=== PATIENT | female | born 1940 | race Caucasian/White ===

== ENCOUNTER 2016-10-01 01:46 | Observation (INO) ==
[2016-10-01] MEDS ORDERED: Ipratropium/Albuterol Neb 3 ML IH STA (01:51)
[2016-10-01] MEDS ORDERED: Ondansetron 4 MG/2 ML VIAL IVP STA (01:59)
--- NOTE | 2016-10-01 02:02 | Emergency Department Note ---
Disposition Clinical Impression: Congestive heart failure Qualifiers: Congestive heart failure type: unspecified congestive heart failure type Congestive heart failure chronicity: unspecified congestive heart failure chronicity Qualified Code(s): I50.9 - Heart failure, unspecified Disposition: Admitted As Inpatient Condition: Serious SOB HPI - General Chief Complaint: ED Shortness of Breath/Dyspnea Stated Complaint: sob Time Seen by Provider: 10/01/16 01:49 Nursing Notes Reviewed: Yes Vital Signs Reviewed: Yes - History of Present Illness Patient is a 75-year-old female has felt short of breath for 3 days. She denies a history of lung problems. She denies congestive heart failure he denies COPD. Denies tobacco. Pt Subjective Complaint: shortness of breath Onset (ago): day(s) (3days) - Related Data Home Medications Medication Instructions Recorded Confirmed Aspirin [Lo-Dose Aspirin EC] 81 mg PO DAILY 05/07/16 10/01/16 Cephalexin [Keflex] 500 mg PO BID 05/07/16 10/01/16 Citalopram [CeleXA] 20 mg PO DAILY 05/07/16 10/01/16 Famotidine [Pepcid] 40 mg PO DAILY 05/07/16 10/01/16 Lisinopril-HCTZ 20-12.5 [Prinzide 1 each PO DAILY 05/07/16 10/01/16 20-12.5] Previous Rx's Medication Instructions Recorded Amlodipine [Norvasc] 5 mg PO DAILY #15 tablet 05/07/16 Allergies Allergy/AdvReac Type Severity Reaction Status Date / Time No Known Allergies Allergy Verified 04/30/16 14:32 All systems ED: reviewed and negative except as stated. Past Medical History - Past Medical History Medical history: Reports: GERD, hyperlipidemia, hypertension Psychiatric history: Reports: anxiety - Social History Smoking Status: Never smoker Smokeless Tobacco Status: No Alcohol use: Reports: none Drug use: Reports: none Physical Exam - General Limitations: no limitations General appearance: other (dyspneic) - Head Head exam: atraumatic - Eye Eye exam: Present: normal appearance - ENT ENT exam: normal exam - Neck Neck exam: Present: normal inspection - Chest Chest inspection: Present: normal inspection - Respiratory Respiratory exam: Present: accessory muscle use, other (crackles) - Cardiovascular Cardiovascular exam: Present: regular rate - Abdominal Exam Abdominal exam: Present: soft, Non-Tender - Extremities Exam Extremities exam: Present: normal inspection - Back Exam Back exam: Present: normal inspection - Neurological Exam Neurological exam: Present: alert, oriented X3, CN II-XII intact - Psychiatric Psychiatric exam: Present: normal affect, normal mood - Skin Skin exam: Present: warm, dry Course Course Narrative: Patient's son called I asked the patient was okay to discuss her care with him she said yes. She and the son wanted her transferred to [facility] if necessary. - Reevaluation(s) Reevaluation #1: Patient sounds that are consistent with congestive heart failure and chest x- ray looks consistent with congestive heart failure although her lactic acid is elevated and I am not sure if she would tolerate 30 mg/kg of normal saline. She was given 40 mg of Lasix due to her lungs sounding wet. Reevaluation #2: TROPONIN analyzer being down labs have been sent to [facility]. Which is cold and asked how much longer medical laboratory technical officer and [facility] was not aware of erosive component or a BNP waiting to be run. They believe the box printer must was sent for blood work down. Vital Signs Pulse Rate 106 10/01/16 01:48 Respiratory Rate 32 10/01/16 01:48 Blood Pressure 170/100 10/01/16 01:48 O2 Sat by Pulse Oximetry 80 L 10/01/16 01:48 Temperature 97.2 F L 10/01/16 02:29 Pulse Rate 65 10/01/16 04:56 Respiratory Rate 23 10/01/16 05:04 Blood Pressure 104/57 10/01/16 05:04 O2 Sat by Pulse Oximetry 99 10/01/16 04:56 Oxygen Delivery Oxygen Delivery Bipap Shortness of Breath/Dyspnea - MDM Narrative Medical decision making narrative: Differential: Pneumonia versus influenza versus congestive heart failure - Lab Data Lab results reviewed: Yes I reviewed the patient's lab results. Result diagrams: 10/01/16 02:06 10/01/16 02:06 Lab Results 10/01/16 10/01/16 10/01/16 Range/Units 01:52 02:06 02:06 WBC 8.4 (4.3-11.1) K/mcL RBC 4.19 (3.82-4.97) M/mcL Hgb 12.3 (11.5-15.4) g/dL Hct 37.8 (35.3-44.9) % MCV 90.2 (83.0-100.0) fL MCH 29.4 (28.0-33.3) pg MCHC 32.5 (31.6-35.5) g/dL RDW 12.7 (11.5-14.5) % Plt Count 179 (140-400) K/mcL MPV 11.9 (9.4-12.4) fL Immature Gran % 0.4 (0-4) % Seg Neutrophils % 32.2 % Lymphocytes % 57.2 % Monocytes % 6.4 % Eosinophils % 3.3 % Basophils % 0.5 % Neutrophils # 2.7 (1.6-8.9) K/mcL Lymphocytes # 4.8 H (0.6-4.6) K/mcL Monocytes # 0.5 (0.0-1.3) K/mcL Eosinophils # 0.3 (0.0-0.6) K/mcL Basophils # 0.0 (0.0-0.2) K/mcL Platelet Estimate Normal (Normal) Clumped Platelets Few A (Not Present) PT 12.2 H (9.4-12.1) Seconds INR 1.1 ABG pH 7.18 L* (7.32-7.45) pH Units ABG pCO2 58 H (35-45) mmHg ABG pO2 67 L (85-104) mmHg ABG HCO3 21.9 (21-27) mEQ/L ABG Total CO2 23.6 (20-26) mEq/L ABG O2 Saturation 87 L (95-98) % ABG Base Excess -6.5 L (-2.0 to 3.0) mEq/L VBG Lactic Acid (0.5-2.2) mmol/L Respiration Rate Liter Flow 8 L/MIN Blood Gas Modality Simple Mask Inspired O2 % Inspiratory BiPAP cm H2O Expiratory BiPAP cm H2O Sodium (136-145) mEq/L Potassium (3.5-4.5) mEq/L Chloride (98-109) mEq/L Carbon Dioxide (19-29) mEq/L BUN (7-20) mg/dL Creatinine (0.57-1.11) mg/dL Est GFR ( Amer) (> 60) Est GFR (Non-Af Amer) (> 60) BUN/Creatinine Ratio (6-26) Glucose (70-99) mg/dL Calculated Osmolality (280-300) Calcium (8.6-10.8) mg/dL Total Bilirubin (0.2-1.2) mg/dL AST (5-34) Units/L ALT (0-55) Units/L Alkaline Phosphatase (38-126) Units/L Troponin I (0-0.03) ng/mL B-Natriuretic Peptide (0-100) pg/mL Serum Total Protein (6.0-8.3) g/dL Albumin (3.5-5.0) g/dL Globulin (2.4-3.5) g/dL Albumin/Globulin Ratio (1.1-2.2) Urine Color (Yellow) Urine Clarity (Clear) Urine pH (5.0-8.0) pH Units Ur Specific Gooding (1.010-1.025) Urine Protein (Neg-Trace) mg/dL Urine Glucose (UA) (Normal) mg/dL Urine Ketones (Negative) mg/dL Urine Blood (Negative) Urine Nitrite (Negative) Urine Bilirubin (Negative) Urine Urobilinogen (Normal) mg/dL Ur Leukocyte Esterase (Negative) Urine Microscopic RBC (0-3) per hpf Urine Microscopic WBC (0-3) per hpf Ur Squamous Epith Cells (None-Few) per lpf Hyaline Casts (None-Few) per lpf Ur Culture Indicated? (NO) 10/01/16 10/01/16 10/01/16 Range/Units 02:06 02:06 02:06 WBC (4.3-11.1) K/mcL RBC (3.82-4.97) M/mcL Hgb (11.5-15.4) g/dL Hct (35.3-44.9) % MCV (83.0-100.0) fL MCH (28.0-33.3) pg MCHC (31.6-35.5) g/dL RDW (11.5-14.5) % Plt Count (140-400) K/mcL MPV (9.4-12.4) fL Immature Gran % (0-4) % Seg Neutrophils % % Lymphocytes % % Monocytes % % Eosinophils % % Basophils % % Neutrophils # (1.6-8.9) K/mcL Lymphocytes # (0.6-4.6) K/mcL Monocytes # (0.0-1.3) K/mcL Eosinophils # (0.0-0.6) K/mcL Basophils # (0.0-0.2) K/mcL Platelet Estimate (Normal) Clumped Platelets (Not Present) PT (9.4-12.1) Seconds INR ABG pH (7.32-7.45) pH Units ABG pCO2 (35-45) mmHg ABG pO2 (85-104) mmHg ABG HCO3 (21-27) mEQ/L ABG Total CO2 (20-26) mEq/L ABG O2 Saturation (95-98) % ABG Base Excess (-2.0 to 3.0) mEq/L VBG Lactic Acid (0.5-2.2) mmol/L Respiration Rate Liter Flow L/MIN Blood Gas Modality Inspired O2 % Inspiratory BiPAP cm H2O Expiratory BiPAP cm H2O Sodium 138 (136-145) mEq/L Potassium 3.1 L (3.5-4.5) mEq/L Chloride 104 (98-109) mEq/L Carbon Dioxide 17 L (19-29) mEq/L BUN 17 (7-20) mg/dL Creatinine 0.91 (0.57-1.11) mg/dL Est GFR ( Amer) > 60 (> 60) Est GFR (Non-Af Amer) > 60 (> 60) BUN/Creatinine Ratio 19 (6-26) Glucose 263 H (70-99) mg/dL Calculated Osmolality 297 (280-300) Calcium 8.6 (8.6-10.8) mg/dL Total Bilirubin 0.3 (0.2-1.2) mg/dL AST 29 (5-34) Units/L ALT 17 (0-55) Units/L Alkaline Phosphatase 62 (38-126) Units/L Troponin I 0.01 (0-0.03) ng/mL B-Natriuretic Peptide 424 H (0-100) pg/mL Serum Total Protein 6.7 (6.0-8.3) g/dL Albumin 3.6 (3.5-5.0) g/dL Globulin 3.1 (2.4-3.5) g/dL Albumin/Globulin Ratio 1.2 (1.1-2.2) Urine Color (Yellow) Urine Clarity (Clear) Urine pH (5.0-8.0) pH Units Ur Specific Gooding (1.010-1.025) Urine Protein (Neg-Trace) mg/dL Urine Glucose (UA) (Normal) mg/dL Urine Ketones (Negative) mg/dL Urine Blood (Negative) Urine Nitrite (Negative) Urine Bilirubin (Negative) Urine Urobilinogen (Normal) mg/dL Ur Leukocyte Esterase (Negative) Urine Microscopic RBC (0-3) per hpf Urine Microscopic WBC (0-3) per hpf Ur Squamous Epith Cells (None-Few) per lpf Hyaline Casts (None-Few) per lpf Ur Culture Indicated? (NO) 10/01/16 10/01/16 10/01/16 Range/Units 02:12 02:44 03:48 WBC (4.3-11.1) K/mcL RBC (3.82-4.97) M/mcL Hgb (11.5-15.4) g/dL Hct (35.3-44.9) % MCV (83.0-100.0) fL MCH (28.0-33.3) pg MCHC (31.6-35.5) g/dL RDW (11.5-14.5) % Plt Count (140-400) K/mcL MPV (9.4-12.4) fL Immature Gran % (0-4) % Seg Neutrophils % % Lymphocytes % % Monocytes % % Eosinophils % % Basophils % % Neutrophils # (1.6-8.9) K/mcL Lymphocytes # (0.6-4.6) K/mcL Monocytes # (0.0-1.3) K/mcL Eosinophils # (0.0-0.6) K/mcL Basophils # (0.0-0.2) K/mcL Platelet Estimate (Normal) Clumped Platelets (Not Present) PT (9.4-12.1) Seconds INR ABG pH 7.33 D (7.32-7.45) pH Units ABG pCO2 51 H (35-45) mmHg ABG pO2 71 L (85-104) mmHg ABG HCO3 27 (21-27) mEQ/L ABG Total CO2 28.6 H (20-26) mEq/L ABG O2 Saturation 93 L (95-98) % ABG Base Excess 1.1 (-2.0 to 3.0) mEq/L VBG Lactic Acid 5.7 H* (0.5-2.2) mmol/L Respiration Rate 12 Liter Flow L/MIN Blood Gas Modality BIPAP Inspired O2 50 % Inspiratory BiPAP 12 cm H2O Expiratory BiPAP 6 cm H2O Sodium (136-145) mEq/L Potassium (3.5-4.5) mEq/L Chloride (98-109) mEq/L Carbon Dioxide (19-29) mEq/L BUN (7-20) mg/dL Creatinine (0.57-1.11) mg/dL Est GFR ( Amer) (> 60) Est GFR (Non-Af Amer) (> 60) BUN/Creatinine Ratio (6-26) Glucose (70-99) mg/dL Calculated Osmolality (280-300) Calcium (8.6-10.8) mg/dL Total Bilirubin (0.2-1.2) mg/dL AST (5-34) Units/L ALT (0-55) Units/L Alkaline Phosphatase (38-126) Units/L Troponin I (0-0.03) ng/mL B-Natriuretic Peptide (0-100) pg/mL Serum Total Protein (6.0-8.3) g/dL Albumin (3.5-5.0) g/dL Globulin (2.4-3.5) g/dL Albumin/Globulin Ratio (1.1-2.2) Urine Color Yellow (Yellow) Urine Clarity Clear (Clear) Urine pH 6.0 (5.0-8.0) pH Units Ur Specific Gooding 1.020 (1.010-1.025) Urine Protein 100 H (Neg-Trace) mg/dL Urine Glucose (UA) 100 H (Normal) mg/dL Urine Ketones Negative (Negative) mg/dL Urine Blood Trace-lysed H (Negative) Urine Nitrite Negative (Negative) Urine Bilirubin Negative (Negative) Urine Urobilinogen Normal (Normal) mg/dL Ur Leukocyte Esterase Negative (Negative) Urine Microscopic RBC 3-5 H (0-3) per hpf Urine Microscopic WBC 3-5 H (0-3) per hpf Ur Squamous Epith Cells Few (None-Few) per lpf Hyaline Casts Few (None-Few) per lpf Ur Culture Indicated? NO (NO) - Radiology Data Radiology results reviewed: Yes I reviewed the patient's radiology results. ITS Impressions Chest X-Ray 10/01/16 01:50 IMPRESSION: Pulmonary vascular congestion with small bilateral pleural effusions and bibasilar atelectasis. Superimposed infiltrates cannot be entirely excluded. Continued follow-up recommended. D/ / Angela Ortiz MD / Angela Ortiz MD Interpreting Provider: Angela Ortiz MD - EKG Data EKG attestation: Yes I reviewed and interpreted this EKG. EKG shows normal: Reports: sinus rhythm Rate: Reports: tachycardia Rhythm: Reports: NSR Interpretation: Reports: no acute changes, normal EKG
[2016-10-01 02:05] LABS: ABG Base Excess -6.5 mEq/L (-2.0 to 3.0); ABG HCO3 21.9 mEQ/L (21-27); ABG Oxygen Saturation 87 % (95-98); ABG PCO2 58 mmHg (35-45); ABG PH 7.18 pH Units (7.32-7.45); ABG PO2 67 mmHg (85-104); ABG TCO2 23.6 mEq/L (20-26)
[2016-10-01 02:06] LABS: Blood Gas Liter Flow 8 L/MIN
[2016-10-01] MEDS ORDERED: Furosemide 40 MG/4 ML VIAL IVP STA (02:15)
[2016-10-01 02:24] LABS: Basophils % 0.5 %; Eosinophils # 0.3 K/mcL (0.0-0.6); Eosinophils % 3.3 %; Hematocrit 37.8 % (35.3-44.9); Hemoglobin 12.3 g/dL (11.5-15.4); Immature Granulocytes % 0.4 % (0-4); Lymphocytes # 4.8 K/mcL (0.6-4.6); Lymphocytes % 57.2 %; Mean Corpuscular HGB Conc 32.5 g/dL (31.6-35.5); Mean Corpuscular Hemoglobin 29.4 pg (28.0-33.3); Mean Corpuscular Volume 90.2 fL (83.0-100.0); Mean Platelet Volume 11.9 fL (9.4-12.4); Monocytes # 0.5 K/mcL (0.0-1.3); Monocytes % 6.4 %; Neutrophils # 2.7 K/mcL (1.6-8.9); Platelet Count 179 K/mcL (140-400); Red Blood Count 4.19 M/mcL (3.82-4.97); Red Cell Distribution Width 12.7 % (11.5-14.5); Segmented Neutrophils % 32.2 %
[2016-10-01 02:30] LABS: INR 1.1; Prothrombin Time 12.2 Seconds (9.4-12.1)
[2016-10-01 02:41] LABS: Alanine Aminotransferase 17 Units/L (0-55); Albumin 3.6 g/dL (3.5-5.0); Albumin/Globulin Ratio 1.2 (1.1-2.2); Alkaline Phosphatase 62 Units/L (38-126); Aspartate Amino Transferase 29 Units/L (5-34); BUN/Creatinine Ratio 19 (6-26); Bilirubin,Total 0.3 mg/dL (0.2-1.2); Blood Urea Nitrogen 17 mg/dL (7-20); Calcium 8.6 mg/dL (8.6-10.8); Carbon Dioxide 17 mEq/L (19-29); Chloride 104 mEq/L (98-109); Globulin 3.1 g/dL (2.4-3.5); Glucose 263 mg/dL (70-99); Osmolality,Calculated 297 (280-300); Potassium 3.1 mEq/L (3.5-4.5); Sodium 138 mEq/L (136-145); Total Protein 6.7 g/dL (6.0-8.3); eGFR For African Americans > 60 (> 60); eGFR For Non-African Americans > 60 (> 60)
[2016-10-01] MEDS ORDERED: Piperacillin/Tazobactam 3.375 GM in D5% in Water (Mini-Bag+) 100 ML IVPB STA (02:43)
[2016-10-01 02:51] LABS: Bilirubin,Urine Negative (Negative); Blood,Urine Trace-lysed (Negative); Clarity,Urine Clear (Clear); Color,Urine Yellow (Yellow); Glucose,Urine (UA) 100 mg/dL (Normal); Ketones,Urine Negative (Negative); Leukocyte Esterase,Urine Negative (Negative); Nitrite,Urine Negative (Negative); Protein,Urine 100 mg/dL (Neg-Trace); Urobilinogen,Urine Normal (Normal)
[2016-10-01] MEDS ORDERED: *HR* Promethazine 25 MG/ML VIAL IVP STA (03:19)
[2016-10-01 03:25] LABS: Hyaline Casts,Urine Few per lpf (None-Few); Squamous Epithelial Cell,Urine Few per lpf (None-Few)
[2016-10-01 03:51] LABS: Platelet Clumps Few (Not Present); Platelet Estimate Normal (Normal)
[2016-10-01 03:55] LABS: ABG HCO3 27 mEQ/L (21-27); ABG PCO2 51 mmHg (35-45); ABG PH 7.33 pH Units (7.32-7.45); ABG PO2 71 mmHg (85-104); ABG TCO2 28.6 mEq/L (20-26)
[2016-10-01 03:56] LABS: ABG Base Excess 1.1 mEq/L (-2.0 to 3.0); ABG Oxygen Saturation 93 % (95-98); Blood Gas BiPAP(E) 6 cm H2O; Blood Gas BiPAP(I) 12 cm H2O; Blood Gas FiO2 50 %; Blood Gas Respiration Rate 12
[2016-10-01] MEDS ORDERED: Piperacillin/Tazobactam 3.375 GM in D5% in Water (Mini-Bag+) 100 ML IVPB ONE (05:22)
[2016-10-01] MEDS: Aspirin Enteric Coated 81 MG Tablet PO SCH (09:56)
[2016-10-01] MEDS: Lisinopril 20 MG TABLET PO SCH (09:57)
[2016-10-01] MEDS: Famotidine 20 MG TABLET PO SCH (09:57)
--- NOTE | 2016-10-01 10:36 | Internal Med History&Physical ---
Date of Encounter: 10/01/16 Time of Encounter: 10:00 Assessment and Plan (1) Dyspnea Current visit: Yes Status: Acute Suspect possible component of heart failure since BN-peptide is elevated. Will order echocardiogram. Her EKG was generally unremarkable. Qualifiers: Dyspnea type: shortness of breath Qualified Code(s): R06.02 - Shortness of breath (2) Hypokalemia Current visit: Yes Status: Acute Will give supplemental potassium and recheck level in a.m. (3) Hyperglycemia Current visit: Yes Status: Acute Will check hemoglobin A1c. Internal Medicine - H&P: HPI Chief complaint: Dyspnea Admitted From: Home Plans for Post Hospital Care: Home History of present illness: Ms. Monson is a 75 year old female who came to emergency room stating she had onset of dyspnea approximately 3 days ago. There was no pain and minimal cough associated. In the bead preparer hours today she awakened and felt even more dyspneic and had diaphoresis. She came to emergency room and was evaluated and felt to have heart failure. Her BNP peptide was elevated at 424. She was admitted to [facility] floor for ongoing care needs. Her cardiovascular history is significant for hypertension but she denies heart failure angina DVT or pulmonary embolus. She has not had a stress test or heart catheter done. Past Med Surg Social Fam HX - Past Medical History Medical history: GERD, hyperlipidemia, hypertension Psychiatric history: anxiety - Social History Smoking Status: Never smoker Smokeless Tobacco Status: No Alcohol use: none Drug use: none - Family History Mother Living Status: Hx Family Cardiac Disorders: Yes Internal Medicine - H&P: Meds Amlodipine [Norvasc] 5 mg PO DAILY #15 tablet 05/07/16 [Rx] Aspirin [Lo-Dose Aspirin EC] 81 mg PO DAILY 05/07/16 [History] Cephalexin [Keflex] 500 mg PO BID 05/07/16 [History] Citalopram [CeleXA] 20 mg PO DAILY 05/07/16 [History] Famotidine [Pepcid] 40 mg PO DAILY 05/07/16 [History] Lisinopril-HCTZ 20-12.5 [Prinzide 20-12.5] 1 each PO DAILY 05/07/16 [History] Allergies No Known Allergies Allergy (Verified 04/30/16 14:32) All Systems PM: A 10-system review of systems was performed and is negative for pertinent findings except as documented above in the HPI. Review of systems: Gen.: She states her weight has fluctuated from 167-154 over the past few months Cardiovascular: As per history of present illness Respiratory: She is a lifelong nonsmoker and has no known chronic lung disease GI: She has been diagnosed with NAFLD. She denies other disorders of her liver gallbladder or exocrine pancreas : She has had occasional UTI with hematuria. She denies other kidney or bladder disorders Neurologic: She denies large distribution strokes or seizures Endocrine: She has hyperlipidemia but denies diabetes or thyroid disease Hematology/oncology: She denies blood disorders cancers or anemia Psychiatric: She has anxiety and depression. Her son states she likely has OCD Musk skeletal: She has DJD and has been diagnosed with scoliosis and bone spurs in her spine. She denies gout. - Constitutional Vitals: Temp Pulse Resp BP Pulse Ox 98.2 F 76 12 136/81 93 L 10/01/16 05:22 10/01/16 05:22 10/01/16 07:12 10/01/16 05:22 10/01/16 07:12 Exam: Gen.: She is a well-developed well-nourished female who appears in no severe distress at present time. HEENT: Head is atraumatic and normocephalic. Eyes: EOMI. There is no scleral icterus. Mouth: Mucosa is moist. Neck: Supple and nontender. There is no thyromegaly or adenopathy noted. Heart: Regular with frequent ectopic beats heard. No murmurs or gallops are heard. Lungs: No wheezes crackles or egophony present Abdomen: Soft and nontender. No masses or guarding noted. Extremities: There is no cyanosis edema or clubbing noted. Dorsalis pedis and posterior tibial pulses are 1-2 over 2 bilaterally. She has DJD changes of her hands. Neurologic: Mental status: She is talkative and a good historian. Cranial nerves: Smile is symmetric. Forehead wrinkles bilaterally. Tongue protrudes midline. EOMI. Motor: There is no pronator drift. Cerebellar: Finger to nose is intact bilaterally. Skin: Warm and dry Internal Med - H&P Results - Labs CBC & Chem 7: 10/01/16 02:06 10/01/16 02:06
--- NOTE | 2016-10-01 16:05 | ECHO - Doppler Report ---
Echocardiogram Name: Hailey Monson Date of Study: 10/01/2016 Date: 1940 Ht: 65.0 in Medical Record#: [id number] Age: 75 Wt: 150.0 lb Gender: Female BSA: 1.75 Order #: [id number] Location: [facility] Room #: 52 Reading Physician: Bradley Pleitez DO, NANDINI, VERONICA ROMERO Ring Making Machine Operator: Erik Cerda RDCS Ordering Physician: Issa Alejandro MD Primary Physician: None Indications: Shortness of breath Impressions: LVEF 50%. Normal LV chamber size, wall thickness and function. Pseudonormal left ventricular diastolic dysfunction. Normal right ventricular structure and function. Mild aortic regurgitation. Mild-moderate mitral regurgitation. Mild pulmonary hypertension. Estimated RVSP is 36 mmHg. Small pericardial effusion present, which is primarily located adjacent to the right atrium. No tamponade. Significant appearing pleural effusion noted. Left Ventricular Wall Motion: Rest Echo Findings All wall segments showed normal motion. Findings: Study Quality * Technically adequate exam. ECG Findings * Normal sinus rhythm with PACs. Possible periods of atrial fibrillation noted. Left Ventricle * LVEF 50%. * Normal LV chamber size, wall thickness and function. * Pseudonormal left ventricular diastolic dysfunction. Right Ventricle * Normal right ventricular structure and function. Left Atrium * Severely dilated left atrium. Right Atrium * Normal right atrial size. Interatrial Septum * Interatrial septum not well evaluated. Aortic Valve * Trileaflet aortic valve. * Mildly sclerotic aortic valve leaflets. * No aortic stenosis. * Mild aortic regurgitation. Mitral Valve * Mildly thickened mitral valve leaflets. * Mild-moderate mitral regurgitation. * No mitral stenosis. Tricuspid Valve * Normal tricuspid valve structure and function. * Trace tricuspid regurgitation. * Mild pulmonary hypertension. * Estimated RVSP is 36 mmHg. * Estimated RA pressure is 5 mmHg. Pulmonic Valve * Normal pulmonic valve structure. * Mild pulmonic regurgitation. Aorta * Normally sized aortic root. Pericardium * Small pericardial effusion present, which is primarily located adjacent to the right atrium. IVC * Normal IVC dimensions and inspiratory collapse. Pleural Effusion * Significant appearing pleural effusion noted. History Hypertension Hypercholesteremia Measurements: BP: 136/ 81 2D Normal Values RVIDd: 3.20 cm <2.7 cm IVSd: 1.10 cm 0.6 - 1.0 cm LVIDd: 5.50 cm 3.7 - 5.6 cm LVPWd: .90 cm 0.6 - 1.1 cm LVIDs: 4.80 cm 1.5 - 3.6 cm AO: 3.00 cm < 4.0 cm LA: 3.40 cm 2.0 - 4.0cm %FS: 13.00 cm >25 % LA volume: 97 Mitral Valve Peak E:.88 m/sec Peak A:.62 m/sec E/A Ratio:1.4 Peak E' Lat Jeevan:8.38 cm/s Peak E' Med Jeevan:4.48 cm/s E/E' Lat Ratio:10.5 E/E' Med Ratio:19.6 Aortic Valve AI pressure Half-time: 456.00 msec Tricuspid Valve TV Regurg Peak Grad: 38.00mmHg TV Regurg Peak Jeevan: 3.07m/sec Updated by Bradley Pleitez DO, NANDINI, VERONICA ROMERO on 10/01/2016 3:59:53 PM electronically signed on 10/01/2016 4:00:40 PM with status of Final Wall Motion Fleming: 1=Normal, 2=Hypokinesis, 3=Akinesis, 4=Dyskinesis, 5=Aneurysmal, 6=Hyperkinetic, X=Not Visualized (Blank)=Missing
--- NOTE | 2016-10-01 16:55 | Electrocardiograph Report ---
[address] [address] Test Date: 2016-10-01 Pat Name: Hailey Monson Department: [id number] Room: [facility] Gender: F Family Services Assistant: : 1940 Requested By: Ned Solomon Order Number: [id number] Reading MD: Jessika Jackson Measurements Intervals Lane Rate: 100 P: 40 ND: 157 QRS: 54 QRSD: 98 T: 94 QT: 367 QTc: 424 Interpretive Statements SINUS TACHYCARDIA NONSPECIFIC T-WAVE ABNORMALITY ABNORMAL RHYTHM ECG Electronically Signed On 10-01-2016 16:53:14 EST by Jessika Jackson
[2016-10-01 18:02] LABS: Hemoglobin A1C 5.3 %
[2016-10-02 06:30] LABS: Basophils % 0.4 %; Eosinophils # 0.1 K/mcL (0.0-0.6); Eosinophils % 1.7 %; Hematocrit 32.4 % (35.3-44.9); Hemoglobin 10.8 g/dL (11.5-15.4); Immature Granulocytes % 0.2 % (0-4); Lymphocytes % 36.4 %; Mean Corpuscular HGB Conc 33.3 g/dL (31.6-35.5); Mean Corpuscular Hemoglobin 29.4 pg (28.0-33.3); Mean Corpuscular Volume 88.3 fL (83.0-100.0); Mean Platelet Volume 11.4 fL (9.4-12.4); Monocytes # 0.5 K/mcL (0.0-1.3); Monocytes % 9.4 %; Neutrophils # 2.8 K/mcL (1.6-8.9); Platelet Count 197 K/mcL (140-400); Red Blood Count 3.67 M/mcL (3.82-4.97); Red Cell Distribution Width 12.9 % (11.5-14.5); Segmented Neutrophils % 51.9 %
[2016-10-02 06:55] LABS: BUN/Creatinine Ratio 21 (6-26); Blood Urea Nitrogen 16 mg/dL (7-20); Calcium 8.8 mg/dL (8.6-10.8); Carbon Dioxide 28 mEq/L (19-29); Chloride 103 mEq/L (98-109); Glucose 104 mg/dL (70-99); Osmolality,Calculated 293 (280-300); Potassium 4.1 mEq/L (3.5-4.5); Sodium 141 mEq/L (136-145); eGFR For African Americans > 60 (> 60); eGFR For Non-African Americans > 60 (> 60)
[2016-10-02] MEDS: Famotidine 20 MG TABLET PO SCH (07:49)
[2016-10-02] MEDS: Lisinopril 20 MG TABLET PO SCH (07:51)
[2016-10-02] MEDS: Aspirin Enteric Coated 81 MG Tablet PO SCH (07:51)
--- NOTE | 2016-10-02 08:49 | Discharge Summary ---
Date of Encounter: 10/02/16 Time of Encounter: 08:35 - Discharge Diagnosis (1) Dyspnea Priority: Primary Status: Acute Qualifiers: Dyspnea type: shortness of breath Qualified Code(s): R06.02 - Shortness of breath (2) Hypokalemia Priority: Secondary Status: Resolved (3) Hyperglycemia Priority: Secondary Status: Acute - Discharge Medications Prescriptions: Bumetanide [Bumex] 0.5 mg PO Q48H #7 tablet Home Medications: Aspirin [Lo-Dose Aspirin EC] 81 mg PO DAILY 05/07/16 [History] Citalopram [CeleXA] 20 mg PO DAILY 05/07/16 [History] Famotidine [Pepcid] 40 mg PO DAILY 05/07/16 [History] Bumetanide [Bumex] 0.5 mg PO Q48H #7 tablet 10/02/16 [Rx] Lisinopril [Zestril] 20 mg PO DAILY tablet 10/02/16 [Rx] Allergies/Adverse Reactions: Allergies No Known Allergies Allergy (Verified 04/30/16 14:32) Procedures/tests Complete & Pending: Procedures Performed prior 72 hours Category Date Time Status EV echocardiogram Routine Y 10/01/16 10:44 Completed Date of admission: 10/01/16 04:57 Primary care physician: Li Gay CNP - Patient Status Disposition: Home, Self-Care Condition: Serious Overall status at discharge: patient is progressing back to baseline - Discharge Instructions Follow Up With: Li Gay CNP [Primary Care Provider] - 1 week - Diet and Activity Activity: resume usual activities as tolerated Diet: advance to your usual diet Hospital course: Ms. Monson is a 75 year old female who came to emergency room stating she had onset of dyspnea approximately 3 days ago. There was no pain and minimal cough associated. In the early childhood education specialist hours today she awakened and felt even more dyspneic and had diaphoresis. She came to emergency room and was evaluated and felt to have heart failure. Her BNP peptide was elevated at 424. She was admitted to [facility] for ongoing care needs. Initial orders were written by the emergency room physician. I saw her on October 01 and performed the history and physical. She was given a dose of IV Lasix in the emergency room. She was also started on lisinopril/HCTZ by the emergency room physician since it appeared on her home medicine list. I reviewed her home medicine list with her and she denied use of lisinopril/HCTZ and stated she had been changed to lisinopril. An echocardiogram was ordered and showed LVEF of 50% with mild AI and mild to moderate MR. There was a small pericardial effusion present. When I saw her on October 02 she stated her dyspnea was noticeably improved. Examination showed improved breath sounds in the bases of her lungs and less dyspnea overall. She felt stable for discharge home which I feel is reasonable. Room air oximetry on a 6 minute walk will be checked prior to discharge. Her primary care provider follow-up on the right pleural effusion. I will start her on a low dose of Bumex every other day for heart failure. Supplemental potassium was given and follow-up potassium level on October 02 was normal at 4.1. Hemoglobin A1c was acceptable at 5.3%. - Time Spent with Patient Total time spent providing and/or coordinating discharge services: - Constitutional Vitals: Temp Pulse Resp BP Pulse Ox 97.7 F 71 16 122/73 94 L 10/02/16 06:53 10/02/16 06:53 10/02/16 06:53 10/02/16 06:53 10/02/16 06:53
[2016-10-02 16:16] VITALS: BP 126/72
== END 2016-10-02 16:10 | disposition home or self-care (01) ==
LOC: EMEROOPIK 01:46 → INPPIK 01:46
PROVIDERS: ADMIT Internal Medicine; ATTEND Internal Medicine

== ENCOUNTER 2016-11-18 00:53 | Observation (INO) ==
[2016-11-18] MEDS ORDERED: Ipratropium/Albuterol Neb 3 ML IH ONE (01:11)
[2016-11-18] MEDS ORDERED: 0.9 % Sodium Chloride 1,000 ML IVC SCH ×2 (01:15→04:16)
--- NOTE | 2016-11-18 01:24 | Emergency Department Note ---
Disposition Clinical Impression: Congestive heart failure Qualifiers: Congestive heart failure type: unspecified congestive heart failure type Congestive heart failure chronicity: unspecified congestive heart failure chronicity Qualified Code(s): I50.9 - Heart failure, unspecified Dyspnea Qualifiers: Dyspnea type: unspecified Qualified Code(s): R06.00 - Dyspnea, unspecified Disposition: Admitted As Inpatient Condition: Fair SOB HPI - General Chief Complaint: ED Upper Respiratory Infection Stated Complaint: URI SX Time Seen by Provider: 11/18/16 00:59 Source: patient, EMS Mode of arrival: EMS Limitations: no limitations Nursing Notes Reviewed: Yes Vital Signs Reviewed: Yes - History of Present Illness Patient presents to the ED via EMS reporting nausea and shortness of breath and fatigue. Symptoms started a few hours ago. She reports a productive cough but denies any sneezing, rhinorrhea or congestion. She had one episode of diarrhea today. No abdominal pain. No vomiting. She denies any fever or chills. No chest pain. No urinary symptoms. She denies any leg swelling. She was admitted here in September and diagnosed with heart failure and sent home on home O2 along with Bumex. She states when she followed up with her PCP she told her to stop wearing the oxygen and she stopped her Bumex to see how she would do. She has not been wearing the oxygen or taking Bumex since that time. She has a history of hypertension but no CAD or diabetes. - Related Data Home Medications Medication Instructions Recorded Confirmed Aspirin [Lo-Dose Aspirin EC] 81 mg PO DAILY 05/07/16 11/18/16 Citalopram [CeleXA] 20 mg PO DAILY 05/07/16 11/18/16 Famotidine [Pepcid] 40 mg PO DAILY 05/07/16 11/18/16 Previous Rx's Medication Instructions Recorded Bumetanide [Bumex] 0.5 mg PO Q48H #7 tablet 10/02/16 Lisinopril [Zestril] 20 mg PO DAILY tablet 10/02/16 Allergies Allergy/AdvReac Type Severity Reaction Status Date / Time No Known Allergies Allergy Verified 04/30/16 14:32 Constitutional: Denies: fever, chills, weakness, weight change Eyes: Denies: eye pain, eye discharge, vision change ENT ED: Denies: ear pain, throat pain, dental pain, hearing loss, epistaxis, congestion, dysphagia Cardiovascular: Denies: chest pain, palpitations, dyspnea on exertion, edema, syncope Respiratory: Reports: cough, sputum production. Denies: dyspnea, wheezes, hemoptysis, stridor Gastrointestinal: Reports: nausea. Denies: abdominal pain, vomiting, diarrhea, constipation, hematemesis, melena, hematochezia Genitourinary: Denies: dysuria, frequency, hematuria, discharge Musculoskeletal: Denies: back pain, neck pain, arthralgia, myalgia Integumentary: Denies: rash, abrasion, lesions Neurological: Denies: headache, weakness, numbness, paresthesias, confusion, abnormal gait, vertigo Psychiatric: Denies: anxiety, depression, suicidal thoughts, homicidal thoughts , auditory hallucinations, visual hallucinations Endocrine: Denies: fatigue Hematological/Lymphatic: Denies: easy bleeding, easy bruising Allergic/Immunologic: Denies: facial swelling, urticaria Past Medical History - Past Medical History Medical history: Reports: asthma, CHF, COPD, GERD, hyperlipidemia, hypertension Psychiatric history: Reports: anxiety - Social History Smoking Status: Never smoker Smokeless Tobacco Status: No Alcohol use: Reports: none Drug use: Reports: none Physical Exam - General Limitations: no limitations General appearance: alert, in no apparent distress - Head Head exam: atraumatic, normocephalic, normal inspection - Eye Eye exam: Present: normal appearance, PERRL, EOMI - ENT ENT exam: normal exam, normal oropharynx, mucous membranes moist - Neck Neck exam: Present: normal inspection, full ROM, trachea midline - Chest Chest inspection: Present: normal inspection, symmetric chest wall rise - Respiratory Respiratory exam: Present: wheezes (scattered) - Expanded Respiratory Exam Location: rales: Lower, Right, Left, rhonchi: Left, Right, Upper, Lower ( scattered) - Cardiovascular Cardiovascular exam: Present: regular rate, normal rhythm, normal heart sounds - Abdominal Exam Abdominal exam: Present: soft, Non-Tender. Absent: tenderness, distention, guarding, rebound, rigidity - Extremities Exam Extremities exam: Present: normal inspection, full ROM. Absent: tenderness, pedal edema - Back Exam Back exam: Present: normal inspection, full ROM. Absent: tenderness - Neurological Exam Neurological exam: Present: alert, oriented X3 - Psychiatric Psychiatric exam: Present: normal affect, normal mood - Skin Skin exam: Present: warm, dry, intact, normal color Course Course Narrative: Patient presents to the ED with complaints of nausea and shortness of breath for a few hours. She was diagnosed with heart failure month ago but has been off oxygen and diuretics for her PCPs obstruction. On exam she has some scattered wheezing as well as rails is concerning for bronchitis versus pneumonia or possible CHF exacerbation. Will obtain chest x-ray and labs and give nebulizer treatment. - Reevaluation(s) Reevaluation #1: Chest x-ray shows suspected atelectasis and cardiomegaly with no symptoms of overt failure. EKG shows a normal sinus rhythm with nonspecific changes that is unchanged from last admission in October. Laboratory studies are overall unremarkable other than elevated BNP at 361 which is increased from time of her last discharge. Troponin is negative. No leukocytosis. Patient remains hypoxic with oxygen saturations in the upper 80s to low 90s on 2-1/2 L. Will increase her oxygen level and obtain ABG for further evaluation. Patient reports nausea subsiding and breathing is slightly improved with the neb treatment. I am concerned however given her symptoms and persistent hypoxia and feel that she would benefit from admission and likely restarting diuretics. Patient is agreeable to this. Will contact the hospitalist compensation programs manager. Reevaluation #2: She has been accepted by the hospitalist, Dr. Alejandro. Vital Signs Temperature 98.8 F 11/18/16 00:54 Pulse Rate 98 11/18/16 00:54 Respiratory Rate 24 11/18/16 00:54 Blood Pressure 143/110 11/18/16 00:54 O2 Sat by Pulse Oximetry 90 L 11/18/16 00:54 Temperature 98.8 F 11/18/16 00:54 Pulse Rate 83 11/18/16 02:47 Respiratory Rate 24 11/18/16 02:47 Blood Pressure 142/78 11/18/16 02:47 O2 Sat by Pulse Oximetry 91 L 11/18/16 02:47 Oxygen Delivery Oxygen Delivery Nasal Cannula Shortness of Breath/Dyspnea - Differential Diagnosis Likely: congestive heart failure, pneumonia - Medical Records Medical records reviewed: Yes I reviewed the patient's medical records. - Lab Data Lab results reviewed: Yes I reviewed the patient's lab results. Result diagrams: 11/18/16 01:20 11/18/16 01:20 Lab Results 11/18/16 11/18/16 11/18/16 Range/Units 01:20 01:20 01:20 WBC 10.5 (4.3-11.1) K/mcL RBC 4.07 (3.82-4.97) M/mcL Hgb 11.7 (11.5-15.4) g/dL Hct 35.4 (35.3-44.9) % MCV 87.0 (83.0-100.0) fL MCH 28.7 (28.0-33.3) pg MCHC 33.1 (31.6-35.5) g/dL RDW 13.2 (11.5-14.5) % Plt Count 215 (140-400) K/mcL MPV 11.2 (9.4-12.4) fL Immature Gran % 0.4 (0-4) % Seg Neutrophils % 70.6 % Lymphocytes % 22.3 % Monocytes % 4.1 % Eosinophils % 2.4 % Basophils % 0.2 % Neutrophils # 7.4 (1.6-8.9) K/mcL Lymphocytes # 2.3 (0.6-4.6) K/mcL Monocytes # 0.4 (0.0-1.3) K/mcL Eosinophils # 0.3 (0.0-0.6) K/mcL Basophils # 0.0 (0.0-0.2) K/mcL PT 12.1 (9.4-12.1) Seconds INR 1.1 APTT 29.1 (26.0-36.0) Seconds ABG pH (7.32-7.45) pH Units ABG pCO2 (35-45) mmHg ABG pO2 (85-104) mmHg ABG HCO3 (21-27) mEQ/L ABG Total CO2 (20-26) mEq/L ABG O2 Saturation (95-98) % ABG Base Excess (-2.0 to 3.0) mEq/L Liter Flow L/MIN Blood Gas Modality Inspired O2 % Sodium (136-145) mEq/L Potassium (3.5-4.5) mEq/L Chloride (98-109) mEq/L Carbon Dioxide (19-29) mEq/L BUN (7-20) mg/dL Creatinine (0.57-1.11) mg/dL Est GFR ( Amer) (> 60) Est GFR (Non-Af Amer) (> 60) BUN/Creatinine Ratio (6-26) Glucose (70-99) mg/dL Calculated Osmolality (280-300) Calcium (8.6-10.8) mg/dL Troponin I (0-0.03) ng/mL B-Natriuretic Peptide 361 H (0-100) pg/mL 11/18/16 11/18/16 11/18/16 Range/Units 01:20 01:20 02:20 WBC (4.3-11.1) K/mcL RBC (3.82-4.97) M/mcL Hgb (11.5-15.4) g/dL Hct (35.3-44.9) % MCV (83.0-100.0) fL MCH (28.0-33.3) pg MCHC (31.6-35.5) g/dL RDW (11.5-14.5) % Plt Count (140-400) K/mcL MPV (9.4-12.4) fL Immature Gran % (0-4) % Seg Neutrophils % % Lymphocytes % % Monocytes % % Eosinophils % % Basophils % % Neutrophils # (1.6-8.9) K/mcL Lymphocytes # (0.6-4.6) K/mcL Monocytes # (0.0-1.3) K/mcL Eosinophils # (0.0-0.6) K/mcL Basophils # (0.0-0.2) K/mcL PT (9.4-12.1) Seconds INR APTT (26.0-36.0) Seconds ABG pH 7.35 (7.32-7.45) pH Units ABG pCO2 51 H (35-45) mmHg ABG pO2 56 L (85-104) mmHg ABG HCO3 28.2 H (21-27) mEQ/L ABG Total CO2 29.7 H (20-26) mEq/L ABG O2 Saturation 87 L (95-98) % ABG Base Excess 1.8 (-2.0 to 3.0) mEq/L Liter Flow 4 L/MIN Blood Gas Modality [place] Inspired O2 36 % Sodium 140 (136-145) mEq/L Potassium 3.4 L (3.5-4.5) mEq/L Chloride 104 (98-109) mEq/L Carbon Dioxide 23 (19-29) mEq/L BUN 18 (7-20) mg/dL Creatinine 0.76 (0.57-1.11) mg/dL Est GFR ( Amer) > 60 (> 60) Est GFR (Non-Af Amer) > 60 (> 60) BUN/Creatinine Ratio 24 (6-26) Glucose 149 H (70-99) mg/dL Calculated Osmolality 295 (280-300) Calcium 9.1 (8.6-10.8) mg/dL Troponin I 0.03 (0-0.03) ng/mL B-Natriuretic Peptide (0-100) pg/mL - Radiology Data Radiology results reviewed: Yes I reviewed the patient's radiology results. - EKG Data EKG attestation: Yes I reviewed and interpreted this EKG. EKG shows normal: Reports: sinus rhythm Rate: Reports: normal Rhythm: Reports: NSR [place]/QRS: Reports: normal Interpretation: Reports: no acute changes, normal EKG, unchanged when compared to prior tracing (date) (10/01/16)
[2016-11-18 01:31] LABS: Basophils % 0.2 %; Eosinophils # 0.3 K/mcL (0.0-0.6); Eosinophils % 2.4 %; Hematocrit 35.4 % (35.3-44.9); Hemoglobin 11.7 g/dL (11.5-15.4); Immature Granulocytes % 0.4 % (0-4); Lymphocytes # 2.3 K/mcL (0.6-4.6); Lymphocytes % 22.3 %; Mean Corpuscular HGB Conc 33.1 g/dL (31.6-35.5); Mean Corpuscular Hemoglobin 28.7 pg (28.0-33.3); Mean Platelet Volume 11.2 fL (9.4-12.4); Monocytes # 0.4 K/mcL (0.0-1.3); Monocytes % 4.1 %; Neutrophils # 7.4 K/mcL (1.6-8.9); Platelet Count 215 K/mcL (140-400); Red Blood Count 4.07 M/mcL (3.82-4.97); Red Cell Distribution Width 13.2 % (11.5-14.5); Segmented Neutrophils % 70.6 %
[2016-11-18 01:34] LABS: INR 1.1; Prothrombin Time 12.1 Seconds (9.4-12.1)
[2016-11-18 01:36] LABS: Activated Partial Thrombo Time 29.1 Seconds (26.0-36.0)
[2016-11-18 01:41] LABS: BUN/Creatinine Ratio 24 (6-26); Blood Urea Nitrogen 18 mg/dL (7-20); Calcium 9.1 mg/dL (8.6-10.8); Carbon Dioxide 23 mEq/L (19-29); Chloride 104 mEq/L (98-109); Glucose 149 mg/dL (70-99); Osmolality,Calculated 295 (280-300); Potassium 3.4 mEq/L (3.5-4.5); Sodium 140 mEq/L (136-145); eGFR For African Americans > 60 (> 60); eGFR For Non-African Americans > 60 (> 60)
[2016-11-18 02:27] LABS: Blood Gas FiO2 36 %; Blood Gas Liter Flow 4 L/MIN
[2016-11-18 02:30] LABS: ABG Base Excess 1.8 mEq/L (-2.0 to 3.0); ABG HCO3 28.2 mEQ/L (21-27); ABG Oxygen Saturation 87 % (95-98); ABG PCO2 51 mmHg (35-45); ABG PH 7.35 pH Units (7.32-7.45); ABG PO2 56 mmHg (85-104); ABG TCO2 29.7 mEq/L (20-26)
[2016-11-18] MEDS ORDERED: Naloxone 0.4 MG/ML INJ IVP PRN ×2 (02:52→04:16)
[2016-11-18] MEDS ORDERED: Ondansetron 4 MG/2 ML VIAL IVP PRN ×2 (02:52→04:16)
[2016-11-18] MEDS ORDERED: Bumetanide 1 MG TABLET PO SCH (04:16)
[2016-11-18] MEDS: Lisinopril 20 MG TABLET PO SCH (08:38)
[2016-11-18] MEDS: Famotidine 20 MG TABLET PO SCH (08:38)
[2016-11-18] MEDS: Aspirin Enteric Coated 81 MG Tablet PO SCH (08:38)
--- NOTE | 2016-11-18 12:02 | Internal Med History&Physical ---
Date of Encounter: 11/18/16 Time of Encounter: 11:30 Assessment and Plan (1) Dyspnea Current visit: Yes Status: Acute Suspect multifactorial origin including diastolic heart failure with probable superimposed lung disease. Will order chest CT after screening d-dimer is done. She will have room air oximetry checked on 6 minute walk prior to discharge and likely need pulmonary function testing done. Qualifiers: Dyspnea type: unspecified Qualified Code(s): R06.00 - Dyspnea, unspecified (2) Hypokalemia Current visit: No Status: Acute Etiology not obvious since she has had no vomiting, diarrhea, or diuretic use. We will give supplemental potassium and monitor labs. Internal Medicine - H&P: HPI Chief complaint: Dyspnea Admitted From: Home Plans for Post Hospital Care: Home History of present illness: Ms. Monson is a 75 year old female who came to emergency room stating she had increasing dyspnea over the past 2 days with nausea. She also had an abdominal sensation of soreness that she thought might be originating from a sore rib or intestinal gas. She came to emergency room and was felt to have exacerbation of heart failure. She was admitted to [facility] floor for ongoing care needs. She was hospitalized at [facility] approximately 6 weeks ago with dyspnea. An echocardiogram showed LVEF of 50% with diastolic dysfunction seen. There was mild AI and mild to moderate MR. No evidence of cardiac tamponade was seen. She has a history of hypertension but denies angina DVT or pulmonary embolus. She has not had a stress test or heart catheterization. Her respiratory history is significant for being a lifelong nonsmoker and having no known chronic lung disease. 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 She has not had PFTs and does not wear home oxygen.. Past Med Surg Social Fam HX - Past Medical History Medical history: asthma, CHF, COPD, GERD, hyperlipidemia, hypertension Psychiatric history: anxiety - Past Surgical History Surgical History: hysterectomy - Social History Smoking Status: Never smoker Smokeless Tobacco Status: No Alcohol use: none Drug use: none - Family History Mother Living Status: Hx Family Cardiac Disorders: Yes Internal Medicine - H&P: Meds Aspirin [Lo-Dose Aspirin EC] 81 mg PO DAILY 05/07/16 [History] Citalopram [CeleXA] 20 mg PO DAILY 05/07/16 [History] Famotidine [Pepcid] 40 mg PO DAILY 05/07/16 [History] Bumetanide [Bumex] 0.5 mg PO Q48H #7 tablet 10/02/16 [Rx] Lisinopril [Zestril] 20 mg PO DAILY tablet 10/02/16 [Rx] Allergies No Known Allergies Allergy (Verified 04/30/16 14:32) All Systems PM: A 10-system review of systems was performed and is negative for pertinent findings except as documented above in the HPI. Review of systems: Gen.: She states last visit her weight has fluctuated from 167-154 over the past few months. Her weight is decreased from 68.039 kg on 10/01/2016 to 65.816 kg today Cardiovascular: As per history of present illness Respiratory: As per history of present illness GI: She has been diagnosed with NAFLD. She denies other disorders of her liver gallbladder or exocrine pancreas : She has had occasional UTI with hematuria. She denies other kidney or bladder disorders Neurologic: She denies large distribution strokes or seizures Endocrine: She has hyperlipidemia but denies diabetes or thyroid disease Hematology/oncology: She denies blood disorders cancers or anemia Psychiatric: She has anxiety and depression. Her son stated at the September 2016 admission she likely has OCD [place] skeletal: She has DJD and has been diagnosed with scoliosis and bone spurs in her spine. She denies gout. - Constitutional Vitals: Temp Pulse Resp BP Pulse Ox 98.2 F 78 24 127/76 98 11/18/16 11:36 11/18/16 11:36 11/18/16 11:36 11/18/16 11:36 11/18/16 11:36 Exam: Gen.: She is a well-developed well-nourished female lying in bed who appears in no severe distress at present time HEENT: Head is atraumatic and normocephalic. Eyes: EOMI. There is no scleral icterus. Mouth: Mucosa is moist. Neck: Supple and nontender. There is no thyromegaly or adenopathy noted. Heart: Regular without murmurs gallops or ectopics Lungs: No wheezes or crackles are heard. Abdomen: Soft and nontender. No masses or guarding are noted. Extremities: There is no cyanosis edema or clubbing noted. Dorsalis pedis and posttibial pulses are trace to 1+ palpable bilaterally. Neurologic: Mental status: She is talkative and a good historian. Cranial nerves: Smile is symmetric. Forehead wrinkles bilaterally. Tongue protrudes midline. EOMI. Motor: There is no pronator drift. Cerebellar: Finger to nose is intact bilaterally. Skin: Warm and dry Internal Med - H&P Results - Labs CBC & Chem 7: 11/18/16 01:20 11/18/16 01:20 - VTE Reasons for not Prescribing Prophylaxis: Treatment not Indicated - Low risk for VTE
--- NOTE | 2016-11-18 19:58 | Electrocardiograph Report ---
[place] [id number] Test Date: 2016-11-18 Pat Name: Hailey Monson Department: [id number] Room: [facility] Gender: F [employer] Gl[employer] Maker: Stephane : 1940 Requested By: Rebecca Deras Order Number: [id number] Reading MD: Pranav Foote MD Measurements Intervals [place] Rate: 90 P: 25 UT: 152 QRS: 27 QRSD: 94 T: 43 QT: 326 QTc: 373 Interpretive Statements SINUS RHYTHM NONSPECIFIC T-WAVE ABNORMALITY Electronically Signed On 11-18-2016 19:57:04 EDT by Pranav Foote MD
[2016-11-19 07:30] VITALS: BP 132/76
[2016-11-19] MEDS: Lisinopril 20 MG TABLET PO SCH (08:47)
[2016-11-19] MEDS: Aspirin Enteric Coated 81 MG Tablet PO SCH (08:48)
[2016-11-19] MEDS: Famotidine 20 MG TABLET PO SCH (08:56)
--- NOTE | 2016-11-19 11:46 | Discharge Summary ---
Date of Encounter: 11/19/16 Time of Encounter: 11:40 - Discharge Diagnosis (1) Dyspnea Priority: Primary Status: Acute Qualifiers: Dyspnea type: unspecified Qualified Code(s): R06.00 - Dyspnea, unspecified (2) Pleural effusion Priority: Secondary Status: Acute (3) Hypokalemia Priority: Secondary Status: Acute - Discharge Medications Prescriptions: Potassium Chloride 10 meq PO BIDWM #14 tab.er.prt Home Medications: Aspirin [Lo-Dose Aspirin EC] 81 mg PO DAILY 05/07/16 [History] Citalopram [CeleXA] 20 mg PO DAILY 05/07/16 [History] Famotidine [Pepcid] 40 mg PO DAILY 05/07/16 [History] Bumetanide [Bumex] 0.5 mg PO Q48H #7 tablet 10/02/16 [Rx] Lisinopril [Zestril] 20 mg PO DAILY tablet 10/02/16 [Rx] Potassium Chloride 10 meq PO BIDWM #14 tab.er.prt 11/19/16 [Rx] Allergies/Adverse Reactions: Allergies No Known Allergies Allergy (Verified 04/30/16 14:32) Procedures/tests Complete & Pending: Procedures Performed prior 72 hours Category Date Time Status CTA chest [CT angio chest] [CT] Routine Cat Scan 11/18/16 17:23 Completed Date of admission: 11/18/16 02:44 Primary care physician: Li Gay CNP - Patient Status Disposition: Home, Self-Care Condition: Fair Overall status at discharge: patient is progressing back to baseline - Discharge Instructions Follow Up With: Li Gay CNP [Primary Care Provider] - - Diet and Activity Activity: resume usual activities as tolerated Diet: advance to your usual diet Hospital course: Ms. Monson is a 75 year old female who came to emergency room stating she had increasing dyspnea over the past 2 days with nausea. She also had an abdominal sensation of soreness that she thought might be originating from a sore rib or intestinal gas. She came to emergency room and was felt to have exacerbation of heart failure. She was admitted to [facility] for ongoing care needs. Initial orders were written by the emergency room physician. I saw her on November 18 and performed the history and physical. A D-dimer returned elevated at 3061. CTA of chest showed no evidence of pulmonary embolism. There was a large right pleural effusion and a moderate left pleural effusion seen. She underwent a right thoracentesis procedure at bedside after consent was obtained November 19. Approximately 600 mL of reddish chidi fluid was withdrawn from the right hemithorax without complications. A postprocedure chest x-ray showed complete clearing of the effusion with no evidence of pneumothorax. The fluid was sent for analysis with all results pending at time of this dictation. Her PCP Li Gay CNP can follow-up on the results. Her dyspnea improved and she felt back to her baseline when I saw her later on November 19. She has home oxygen already for use as needed. She will be discharged home and follow with her PCP within one week. A 1 week prescription for supplemental potassium will be given because of the hypokalemia. - Time Spent with Patient Total time spent providing and/or coordinating discharge services: - Constitutional Vitals: Temp Pulse Resp BP Pulse Ox 98.3 F 67 16 132/76 97 11/19/16 07:29 11/19/16 07:29 11/19/16 07:29 11/19/16 07:29 11/19/16 07:29 - VTE Reasons for not Prescribing Prophylaxis: Treatment not Indicated - Low risk for VTE
[2016-11-19 12:12] LABS: Glucose,Pleural Fluid 109 mg/dL (No Ref Range); LDH,Pleural Fluid 91 Units/L (No Ref Range); Total Protein,Pleural Fluid 2.5 g/dL (No Ref Range)
[2016-11-19 12:38] LABS: RBC,Pleural Fluid < 0.002 M/mcL
[2016-11-19 12:55] LABS: Appearance of Pleural Fl Hazy (Clear)
[2016-11-20] MEDS ORDERED: Bumetanide 1 MG TABLET PO SCH (09:00)
== END 2016-11-19 12:44 | disposition home or self-care (01) ==
LOC: EMEROOPIK 00:53 → INPPIK 00:53
PROVIDERS: ADMIT Internal Medicine; ATTEND Internal Medicine